=== PATIENT | female | born 1990 | race Caucasian/White ===

== ENCOUNTER 2017-06-09 17:10 | Emergency (ER) | payer OTHER ==
[~2017-06-09] VITALS: Ht 154.9 cm; Wt 64.4 kg
[2017-06-09 17:15] VITALS: BP 129/56
--- NOTE | 2017-06-09 17:24 | NUR ---
PT AMBULATES TO BED 12
--- NOTE | 2017-06-09 17:25 | NUR ---
PATIENT PRESENTS TO ED WITH C/O PAIN WHEN URINATION, ITCHING SOMETIMES, DENIES DISCHARGE, ABDOMINAL CRAMPING RADIATING TO BACK. PATIENT STATES PAIN OF 7/10 AT THIS TIME; VSS; PATIENT POSITIONED FOR COMFORT; HOB ELEVATED; BEDRAILS UP X2; BED DOWN. ER MD MADE AWARE OF PT STATUS.
--- NOTE | 2017-06-09 17:25 | NUR ---
Note undone in EDM - 06/09/17 at 1731 by JANNETTE PATIENT PRESENTS TO ED WITH C/O PAIN WHEN URINATION, ITCHING SOMETIMES, DENIES DISCHARGE, ABDOMINAL CRAMPING RADIATING TO BACK. PATIENT STATES PAIN OF 7/10 AT THIS TIME; VSS; PATIENT POSITIONED FOR COMFORT; HOB ELEVATED; BEDRAILS UP X2; BED DOWN. ER MADE AWARE OF PT STATUS.
[2017-06-09] MEDS ORDERED: NACL 0.9% 1,000 ML IV ONE (17:30)
[2017-06-09 17:45] VITALS: BP 129/56
--- NOTE | 2017-06-09 17:45 | NUR ---
Patient discharged with v/s stable. Written and verbal after care instructions given and explained. Patient alert, oriented and verbalized understanding of instructions. Ambulatory with steady gait. All questions addressed prior to discharge. ID band removed. Patient advised to follow up with PMD. Rx of ZOFRAN AND PRILOSEC given. Patient educated on indication of medication including possible reaction and side effects. Opportunity to ask questions provided and answered.
== END 2017-06-09 17:45 | disposition home or self-care (01) ==
LOC: MED 17:10
DX: R10.13 Epigastric pain (principal); R11.2 Nausea with vomiting, unspecified
CPT/HCPCS: 99283

== ENCOUNTER 2018-04-17 08:37 | Emergency (ER) | payer OTHER ==
[~2018-04-17] VITALS: Ht 157.5 cm; Wt 65.8 kg
--- NOTE | 2018-04-17 08:47 | NUR ---
PT AMBULATES TO BED 8
[2018-04-17 08:52] VITALS: BP 128/87
--- NOTE | 2018-04-17 09:06 | NUR ---
PT. ARRIVED TOP ED DUE TO c/o hacking cough with back and anterior chest wall pain x 1 wk pt adds cough is moreso at night; headache and throat pain 6/10 THAT IS DULL AND THROBBING. PT. DENIES ANY N/V/D. DENIES ANY FEVER OR CHILLS. SYMMETRICAL CHEST RISE NOTED. LS: CLEAR THROUGHOUT. ER MD MADE AWARE. SAFETY PRECAUTIONS IMPLEMENTED. WILL CONTINUE TO MONITOR.
[2018-04-17] MEDS ORDERED: KETOROLAC 60 MG/2 ML VIAL IM ONE (09:40)
--- NOTE | 2018-04-17 09:42 | NUR ---
PT PROVIDING URINE SAMPLE AT THIS TIME.
--- NOTE | 2018-04-17 10:30 | NUR ---
PT. SITTING IN BED, RR EVEN AND UNLABORED. PT. ABLE TO SPEAK IN FULL AND COMPLETE SENTENCES. WILL CONTINUE TO MONITOR
--- NOTE | 2018-04-17 10:52 | NUR ---
Patient being evaluated by physician at bedside.
[2018-04-17 11:23] VITALS: BP 124/86
--- NOTE | 2018-04-17 11:23 | NUR ---
Patient discharged with v/s stable. Written and verbal after care instructions given and explained. Patient alert, oriented and verbalized understanding of instructions. Ambulatory with steady gait. All questions addressed prior to discharge. ID band removed. Patient advised to follow up with PMD. Rx of MOTRIN 800MG, PREDNISONE 20MG given. Patient educated on indication of medication including possible reaction and side effects. Opportunity to ask questions provided and answered.
== END 2018-04-17 11:23 | disposition home or self-care (01) ==
LOC: MED 08:37
DX: J02.9 Acute pharyngitis, unspecified (principal); Z90.49 Acquired absence of other specified parts of digestive tract
CPT/HCPCS: 81002; 81025; 96372; 99283; J1885

== ENCOUNTER 2018-07-01 11:10 | Emergency (ER) | payer OTHER ==
[~2018-07-01] VITALS: Ht 154.9 cm; Wt 63.0 kg
[2018-07-01 11:22] VITALS: BP 140/88
--- NOTE | 2018-07-01 11:28 | NUR ---
PT TAKEN TO BED 9.
--- NOTE | 2018-07-01 12:20 | NUR ---
DR CAPPS AT BEDSIDE EVALUATING PT.
[2018-07-01] MEDS ORDERED: LEVOFLOXACIN 500 MG TAB PO ONE (12:35)
[2018-07-01] MEDS ORDERED: cefTRIAXone 1,000 MG in LIDOCAINE 1% ***ER ONLY *** 2.1 ML IM ONE (12:35)
[2018-07-01 12:52] LABS: BILIRUBIN,URINE NEGATIVE (NEGATIVE); BLOOD, URINE 2+ (NEGATIVE); COLOR,URINE YELLOW (YELLOW); LEUKOCYTE ESTERASE ,URINE TRACE (NEGATIVE); NITRITE, URINE NEGATIVE (NEGATIVE); UGLUCOSE NEGATIVE (NEGATIVE)
[2018-07-01] MEDS ORDERED: cefTRIAXone 1,000 MG VIAL ONE (12:56)
[2018-07-01] MEDS ORDERED: LIDOCAINE MPF 1% 5mL VIAL ONE (12:58)
[2018-07-01 13:02] LABS: APPEARANCE,URINE SLIGHTLY HAZY (CLEAR)
--- NOTE | 2018-07-01 13:45 | NUR ---
denies pruritus or rashes s/p rocephin im---dispo home; await dc instructions
[2018-07-01 13:55] VITALS: BP 129/88
--- NOTE | 2018-07-01 13:55 | NUR ---
Patient discharged with v/s stable. Written and verbal after care instructions given and explained. Patient alert, oriented and verbalized understanding of instructions. All questions addressed prior to discharge. Patient advised to follow up with PMD. Rx of Levaquin & phenazopyridine Hydrochloride given. Patient educated on indication of medication including possible reaction and side effects. Opportunity to ask questions provided and answered.
== END 2018-07-01 13:55 | disposition home or self-care (01) ==
LOC: MED 11:10
DX: N30.90 Cystitis, unspecified without hematuria (principal)
CPT/HCPCS: 81001; 81025; 87086; 96372; 99283; J0696; J2001

== ENCOUNTER 2018-09-23 10:19 | Emergency (ER) | payer OTHER ==
[~2018-09-23] VITALS: Ht 157.5 cm; Wt 65.8 kg
--- NOTE | 2018-09-23 10:30 | NUR ---
Patient ambulated to bed 6. RN evaluating patient at bedside.
[2018-09-23 10:35] VITALS: BP 136/76
--- NOTE | 2018-09-23 10:35 | NUR ---
PT BIB SELF FOR UTI SYMPTOMS X 2 DAYS. PT ALSO C/O RIGHT SHOULDER PAIN STARED FROM RIGHT NECK, RADIATED TO RIGHT SHOULDER FOR TWO DAYS. 08/28 HX: UTI TX: VITAMIN D . DENIES N/V/D; SKIN IS PINK/WARM/DRY; AAOX4 WITH EVEN AND STEADY GAIT; LUNGS CLEAR BL; HR EVEN AND REGULAR; PT DENIES ANY FEVER, CP, SOB, OR COUGH AT THIS TIME; PATIENT STATES PAIN OF /10 AT THIS TIME; VSS; PATIENT POSITIONED FOR COMFORT; HOB ELEVATED; BEDRAILS UP X2; BED DOWN. ER MD MADE AWARE OF PT STATUS.
[2018-09-23] MEDS ORDERED: NITROFURANTOIN 100 MG CAP PO STA (11:15)
[2018-09-23 11:32] LABS: BILIRUBIN,URINE 1+ (NEGATIVE); BLOOD, URINE TRACE-I (NEGATIVE); COLOR,URINE ORANGE (YELLOW); LEUKOCYTE ESTERASE ,URINE 2+ (NEGATIVE); NITRITE, URINE POSITIVE (NEGATIVE); UGLUCOSE 1+ (NEGATIVE)
[2018-09-23 11:34] LABS: APPEARANCE,URINE SLIGHTLY HAZY (CLEAR)
[2018-09-23 11:40] LABS: RBC,URINE 0-5 /HPF (0-5)
[2018-09-23 11:41] LABS: URINE AMORPHOUS URATE 1+ /HPF (None Seen)
[2018-09-23 12:28] VITALS: BP 128/75
--- NOTE | 2018-09-23 12:29 | NUR ---
Patient discharged with v/s stable. Written and verbal after care instructions given and explained. Patient alert, oriented and verbalized understanding of instructions. Ambulatory with steady gait. All questions addressed prior to discharge. ID band removed. Patient advised to follow up with PMD. Rx of ibuprofen and nitrpfurantoin given. Patient educated on indication of medication including possible reaction and side effects. Opportunity to ask questions provided and answered.
--- NOTE | 2018-09-25 15:24 | NUR ---
reviewed pt's chart and noted urine + e.coli---appropriate treatment given; no change required at this time.
== END 2018-09-23 12:29 | disposition home or self-care (01) ==
LOC: MED 10:19
DX: N39.0 Urinary tract infection, site not specified (principal); M43.6 Torticollis; Z91.040 Latex allergy status
CPT/HCPCS: 81001; 81025; 87086; 87186; 99283

== ENCOUNTER 2018-11-07 14:13 | Emergency (ER) | payer OTHER ==
[~2018-11-07] VITALS: Ht 157.5 cm; Wt 65.9 kg
[2018-11-07 14:38] VITALS: BP 131/92
--- NOTE | 2018-11-07 14:48 | NUR ---
PT TO LOBBY
--- NOTE | 2018-11-07 14:50 | NUR ---
TP BED 8 WITH STEADY GAIT.
--- NOTE | 2018-11-07 15:11 | NUR ---
c/o right sided back pain and dysuria x 1 wk
[2018-11-07 15:48] VITALS: BP 141/98
== END 2018-11-07 15:48 | disposition home or self-care (01) ==
LOC: MED 14:13
DX: N12 Tubulo-interstitial nephritis, not specified as acute or chronic (principal); Z90.49 Acquired absence of other specified parts of digestive tract; Z91.040 Latex allergy status
CPT/HCPCS: 81025; 87086; 99283